=== PATIENT | female | born 1970 | race Caucasian/White ===

== ENCOUNTER → 2017-12-12 14:15 | Outpatient (CLI) | payer OTHER, SELFPAY ==
[2017-12-19 15:50] LABS: HPV Reflexed? NOT INDICATED
== END ==
PROVIDERS: Family Provider Family Medicine; PCP Family Medicine; Referring Provider Family Medicine; Visit Provider Family Medicine
DX: Z01.419 Encounter for gynecological examination (general) (routine) without abnormal findings (principal)
CPT/HCPCS: 88175; G0145

== ENCOUNTER → 2018-03-02 07:06 | Outpatient (CLI) | payer OTHER, SELFPAY ==
--- NOTE | 2018-03-02 07:13 | BI_ITS ---
MAMMOGRAPHY - BILATERAL SCREENING REASON FOR EXAM: Female, 47 years old. Routine annual screening examination. PERTINENT HISTORY: Non-contributory. TECHNIQUE: Digital bilateral breast alonso (3D mammographic acquisition) in the CC and MLO projections. 2-D mediolateral oblique (MLO) and craniocaudad (CC) views of both breasts were obtained. CAD: Full Field Digital Mammography with Computer Added Detection was performed. COMPARISON: Comparison is made with prior outside examination dated January 12, 2014. FINDINGS: Breast Composition: The breasts are heterogeneously dense, which may obscure small masses. There is an 8 mm x 6.7 mm well-defined nodule in the mid lateral portion of the left breast. Correlation with ultrasound is recommended. No other significant abnormalities are identified. BI/SCREENING MAMM (CAD), BILAT IMPRESSION: 8mm by 6.7 mm well-defined nodule in the mid lateral portion of left breast as described. Correlation with ultrasound is recommended. ASSESSMENT CATEGORY: BIRADS Category 0: Incomplete. Need additional imaging evaluation. A letter regarding these results will be sent to the patient by the facility within 30 days. Approximately 10% of breast cancers are not detected by mammography. A normal mammogram should not delay biopsy of a clinically suspicious abnormality. [id number] Electronically Signed: Parviz Steel MD at 14:35 EST Tel [phone], Service support ,
== END ==
PROVIDERS: Family Provider Family Medicine; PCP Family Medicine; Referring Provider Family Medicine; Visit Provider Family Medicine
DX: Z12.31 Encounter for screening mammogram for malignant neoplasm of breast (principal)
CPT/HCPCS: 77063; 77067

== ENCOUNTER → 2018-03-15 07:56 | Outpatient (CLI) | payer OTHER, SELFPAY ==
--- NOTE | 2018-03-15 07:59 | US_ITS ---
STUDY: ULTRASOUND BREAST - LEFT REASON FOR EXAM: Female, 47 years old. Abnormal screening mammogram. TECHNIQUE: Axial and longitudinal images of the LEFT breast were performed with a high resolution ultrasound transducer. COMPARISON: Comparison is made with prior mammogram dated March 02, 2018. FINDINGS: LEFT Breast: The lateral aspect of the left breast was examined by ultrasound. Multiple small cysts are seen. The largest measures 7 mm x by 6 mm x 5 mm. This is at the 2:00 position of the breast at 3 cm from the nipple and corresponds to the mammographic findings. There are 2 Benign-appearing lymph nodes are seen in the axillary region of the breast. The larger measures 1.1 cm x 0.9 cm x 0.4 cm. US/Breast Limited Unilateral IMPRESSION: The mammographic finding corresponds to a 7 mm x 6 mm x 5 mm cyst. Routine mammographic follow-up is recommended. ASSESSMENT CATEGORY: BIRADS Category 2: Benign. A letter regarding these results will be sent to the patient by the facility within 30 days. Electronically Signed: Parviz Steel MD at 9:20 EST Tel [phone], Service support ,
== END ==
PROVIDERS: Family Provider Family Medicine; PCP Family Medicine; Referring Provider Family Medicine; Visit Provider Family Medicine
DX: R92.8 Other abnormal and inconclusive findings on diagnostic imaging of breast (principal)
CPT/HCPCS: 76642

== ENCOUNTER → 2018-12-18 | Outpatient (CLI) | payer OTHER, SELFPAY ==
[2018-12-18 09:40] VITALS: BMI 26.4
[2018-12-18 13:10] LABS: AST(SGOT) 25 U/L (15-37); Alanine Aminotransfer ALT/SGPT 36 U/L (13-56); Albumin, Serum 3.8 g/dL (3.2-5.0); Alkaline Phosphatase 60 U/L (45-117); Anion Gap 9 (5-15); BUN 16 mg/dL (7-18); Calcium,Total 9.1 mg/dL (8.5-10.1); Chloride 105 mmol/L (98-107); Creatinine, Serum 0.84 mg/dL (0.55-1.02); EST Glomerular Filtration Rate 76 mL/min (>60); Est Glom Filt Rate - Afr Amer 92 mL/min (>60); Follicle Stimulating Hormone 30.6 mIU/mL; Globulin 3.9 g/dL (2.2-4.2); Glucose 112 mg/dL (74-106); Potassium 4.1 mmol/L (3.5-5.1); Protein, Total 7.7 g/dL (6.4-8.2); Sodium Level 138 mmol/L (136-145)
== END | disposition home or self-care (01) ==
LOC: BIMLAB 10:08
PROVIDERS: Family Provider Family Medicine; PCP Family Medicine; Visit Provider Family Medicine
DX: Z78.0 Asymptomatic menopausal state (principal); Z87.19 Personal history of other diseases of the digestive system
CPT/HCPCS: 36415; 80053; 83001

== ENCOUNTER 2019-02-21 07:04 | Day surgery (SDC) | payer OTHER, SELFPAY ==
[2018-12-18 09:40] VITALS: BMI 26.4
[2019-02-21 07:22] VITALS: BP 128/81; PULSE 84; RESP 15; TEMP 37.2; O2SAT 99; BMI 27.6
[2019-02-21 07:25] LABS: Internal QC Validated? YES +Cl - CLEAR BKGD; Pregnancy, Urine Negative Negative
[2019-02-21] MEDS: Lactated Ringers 1,000 ML 100 ML IV (07:31)
--- NOTE | 2019-02-21 07:39 | H&P.OPEN ---
History of Present Illness Date of Admission: 02/21/19 The patient is a 48 year old F who presents for screening colonoscopy. This is her first colonoscopy. She has no abdominal pain or blood in her stool. She has no family history of colon cancer. She is not on any anticoagulation. Past Medical/Surgical History - Planned Operation Planned Operative Procedure/s: cscope Date of Operative Procedure: 02/21/19 Permit Signed: No S.O.S: No Is This Patient Having a Total Joint: No - Previous Hospitalizations/Surgeries HX Hospitalizations: No HX of Surgeries: gallbladder Any Problems With Anesthesia: No You/Your Family Experience Fever (Hyperthermia) With Anes: No Cholinesterase deficiency: No - Cardiovascular Hx Chest Pain within Last 2 months: No Hx of Irregular Heartbeat and/or Afib: No Hx Heart Attack: No Hx Congestive Heart Failure: No Hx Rheumatic Fever: No Hx Hypertension: No Hx Internal Defibrillator: No Hx Pacemaker: No Hx Cardiac Catheterization: No Hx Cardiac Surgery/Stents/Etc.: No Hx Stress Test: No HX Edema: No Hx Pain in Legs when Walking/Leg Cramps: No - Respiratory Chronic Cough: No HX of Shortness of Breath: No Hoarseness: No Hx Chronic Obstructive Pulmonary Disease (COPD): No Hx Asthma: No Hx Emphysema: No Hx Sleep Apnea: No Hx Oxygen Use at Home: No Hx Respiratory Tract Infection/Cold (presently): No Do You Snore Loudly (louder than talking or can be heard): No Do You Often Feel Tired/ Fatigued/ Sleepy Dring Daytime?: No Has Anyone Observed You Stop Breathing During Sleep?: No Result (for STOP score): Negative Hx Smoking: No Smoking Status: Never smoker - Gastrointestinal Hx Gastroesophageal Reflux: No - occ heartburn Hx Gastrointestinal Disorders: No Hx Gastrointestinal Bleed: No Hx Ulcer: No Hx Hiatal Hernia: No Difficulty Chewing/Swallowing: No Recent Onset of Swallowing Problems: No Special diet followed at home: No Hx Unplanned Weight Loss of 20#: No HX Unplanned Weight Gain of 20#: No - Neurological Hx Seizures: No HX Syncope/Blackout Spells/Unconsciousness: No Hx CVA/Stroke: No Hx Transient Ischemic Attacks (TIA): No Hx Multiple Sclerosis: No Hx Parkinson's Disease: No Hx Head/Neck Injury: No Hx Headaches: Yes - occ Hx Back Injury/Pain: No Recent Onset of Speech Difficulty: No Restless Legs: No Does patient have nerve stimulator: No Patient instructed to have device shut off: No Rep notified?: No - Blood Disorder Hx Leukemia: No Bleeding Tendencies: No Hx Deep Vein Thrombosis: No Hx High Cholesterol: No Blood Transmitted Disease: No Hx Hepatitis: No Hx Cirrhosis: No Hx Anemia: No Hx Blood Disorders: No - Reproduction : No Is Patient Lactating: No Hx Hysterectomy: No Hx Tubal Ligation: No Are You Post Menopause: No - Genitourinary Hx Renal Disease: No - Musculoskeletal Hx Arthritis: No Hx Rheumatoid Arthritis: No Hx Gout: No Recent Onset of an Orthopedic Problem: No - Endocrine Hx Diabetes: No Thyroid Disease: No Hx Steroid Therapy: No - Psycho/Social Hx Substance Use: No Hx Alcohol Use: No Hx Anxiety: No Hx Depression: No Mental Illness: No Hx Dementia: No - Miscellaneous Hx Cancer: No Recent Exposure to Contagious Disease: No Active MRSA: No Hx of C-Diff: No Any Loose Teeth: No Allergies No Known Allergies Allergy (Unverified 02/21/19 07:22) - Discharge Is Pt Admitted From a Long Term, or a Jail: No Who Could Help: family After D/C, Where Do you Plan to Go: Return Home - Physical Exam Vitals/I&O's: Vital Signs Temp Pulse Resp BP Pulse Ox 98.9 F 84 15 128/81 H 99 02/21/19 07:22 02/21/19 07:22 02/21/19 07:22 02/21/19 07:22 02/21/19 07:22 Oxygen Delivery Method Room Air Weight: 166 lb 7.184 oz Body Mass Index (BMI) 27.6 General: Alert, Oriented x3 Lungs: Normal air movement Cardiovascular: Regular rate, Regular Rhythm Abdomen: Soft, Non Tender, Non-Distended Laboratory Results 02/21/19 07:15: Urine Test Negative Current Medications Lactated Ringer's () 1,000 mls @ 100 mls/hr IV .Q10H FELICIA Last Admin: 02/21/19 07:31 Dose: 100 mls/hr Documented by: Assessment/Plan All Active Problems (Last Reviewed 12/18/18 @ 10:09 by Lavell Nuñez DO) Encounter for preventive care (Acute) History of stomach ulcers (Acute) History of pneumonia (Acute) 48-year-old female screening colonoscopy I explained endoscopy in detail to the patient. I explained the risks including but not limited to stroke or heart attack with anesthesia, perforation of the GI tract, bleeding, infection. I explained that any of these could necessitate further emergency surgery. The patient understands and all questions were answered sufficiently. The patient wishes to proceed with procedure. Gino Dorsey MD Pager: [facility] [address] [place] [address] [address] [place] [address] Office: Surgery Risks - Colonoscopy Risks Include but are not Limited To: Risks include but are not limited to: Bleeding, perforation requiring further surgery, inability to complete colonoscopy requiring barium enema.
[2019-02-21 08:11] VITALS: BP 104/73; BP 128/81; PULSE 72; RESP 16; TEMP 36.6; O2SAT 100
--- NOTE | 2019-02-21 08:13 | OP.COLON_ITS ---
Patient Name: Michelle Parkinson Procedure Date: 02/21/2019 7:19 AM Date of : 1970 Age: 48 Procedure: Colonoscopy Indications: Screening for colorectal malignant neoplasm Providers: Gino Dorsey MD Referring MD: Lavell Nuñez Medicines: Monitored Anesthesia Care Patient Profile: This is a 48 year old female. Refer to note in patient chart for documentation of history and physical. Last Colonoscopy: none. The patient's first colonoscopy is today. Complications: No immediate complications. Procedure: Pre-Anesthesia Assessment: - Prior to the procedure, a History and Physical was performed, and patient medications and allergies were reviewed. The patient's tolerance of previous anesthesia was also reviewed. The risks and benefits of the procedure and the sedation options and risks were discussed with the patient. All questions were answered, and informed consent was obtained. Prior Anticoagulants: The patient has taken no previous anticoagulant or antiplatelet agents. After reviewing the risks and benefits, the patient was deemed in satisfactory condition to undergo the procedure. After I obtained informed consent, the scope was passed under direct vision. Throughout the procedure, the patient's blood pressure, pulse, and oxygen saturations were monitored continuously. The colonoscope was introduced through the anus and advanced to the cecum, identified by appendiceal orifice and ileocecal valve. The colonoscopy was performed without difficulty. The patient tolerated the procedure well. The quality of the bowel preparation was good. Scope In: 7:54:29 AM Scope Withdrawal Time 0 hours 6 minutes 37 seconds Scope Out: 8:07:52 AM Total Procedure Duration Time 0 hours 13 minutes 23 seconds Findings: The entire examined colon appeared normal on direct and retroflexion views. Impression: - The entire examined colon is normal on direct and retroflexion views. - No specimens collected. Recommendation: - Discharge patient to home. - Resume previous diet. - Continue present medications. - Repeat colonoscopy in 10 years for screening purposes. Procedure Code(s): --- Professional --- 98719, Colonoscopy, flexible; diagnostic, including collection of specimen(s) by brushing or washing, when performed (separate procedure) Diagnosis Code(s): --- Professional --- Z12.11, Encounter for screening for malignant neoplasm of colon CPT copyright 2017 [employer]. All rights reserved. The codes documented in this report are preliminary and upon linux systems administrator review may be revised to meet current compliance requirements. Gino Dorsey MD 02/21/2019 8:13:07 AM This report has been signed electronically. Number of Addenda: 0 Note Initiated On: 02/21/2019 7:19 AM
[2019-02-21 08:15] VITALS: BP 108/75; BP 128/81; PULSE 68; RESP 16; O2SAT 100
[2019-02-21 08:20] VITALS: BP 109/83; BP 128/81; PULSE 68; RESP 16; O2SAT 96
[2019-02-21 08:25] VITALS: BP 110/78; BP 128/81; PULSE 62; RESP 16; TEMP 36.8; O2SAT 100
[2019-02-21 08:41] VITALS: BP 128/81
== END 2019-02-21 08:52 | disposition home or self-care (01) ==
LOC: EN 07:04 → AC 07:05
PROVIDERS: Anesthesiology; Family Provider Family Medicine; PCP Family Medicine; Referring Provider Family Medicine; Visit Provider Surgery
PROC: 0DJD8ZZ Inspection of Lower Intestinal Tract, Via Natural or Artificial Opening Endoscopic (ICD-10-PCS; CPT 45378; principal; 2019-02-21 07:55)
DX: Z12.11 Encounter for screening for malignant neoplasm of colon (principal)
CPT/HCPCS: 45378; 81025; J7120

== ENCOUNTER → 2022-01-04 | Outpatient (CLI) | payer OTHER, SELFPAY ==
[2022-01-04 16:37] LABS: Absolute Neutrophil Count 3.1 X10^3/uL (2.0-7.7); Basophil# 0.01 X10^3/uL; Basophil% 0.2 % (0-1); Eosinophils% 1.8 % (0-5); Hematocrit 43.4 % (37-47); Lymphocyte % 31.6 % (19-41); Mean Corp Hgb Conc 34.6 g/dL (32-36); Mean Corpuscular Hgb 30.1 pg (27.0-32.0); Mean Platelet Vol. 10.1 fl (6.2-12.0); Monocyte# 0.69 X10^3/uL; Monocyte% 12.1 % (0-10); NRBC Flagged by Analyzer 0 % (0-5); Neutrophil # 3.08 X10^3/uL (2.7-7.7); Neutrophil % 54.1 % (47-70); Platelet Count 230 K/mm3 (150-450); RBC Distribution Width CV 13.7 % (11.6-14.6); RBC Distribution Width SD 43.4 fl (35.1-43.9); Red Blood Count 4.99 M/mm3 (4.2-5.4); White Blood Count 5.7 K/mm3 (4.4-11.0)
[2022-01-04 17:01] LABS: Anion Gap 6 (5-15); BUN 16 mg/dL (7-18); BUN/Creat Ratio 19.4 RATIO (10-20); Calcium,Total 9.3 mg/dL (8.5-10.1); Chloride 103 mmol/L (98-107); Creatinine, Serum 0.82 mg/dL (0.55-1.02); EST Glomerular Filtration Rate 77 mL/min (>60); Est Glom Filt Rate - Afr Amer 93 mL/min (>60); Glucose 90 mg/dL (74-106); Potassium 3.5 mmol/L (3.5-5.1); Sodium Level 138 mmol/L (136-145)
[2022-01-13 14:51] LABS: HPV Reflexed? NOT INDICATED
== END | disposition home or self-care (01) ==
LOC: BIMLAB 14:46
PROVIDERS: PCP Family Medicine; Referring Provider Family Medicine; Visit Provider Family Medicine
DX: N92.4 Excessive bleeding in the premenopausal period (principal)
CPT/HCPCS: 36415; 80048; 85025; 88175; G0145

== ENCOUNTER → 2022-02-01 | Outpatient (CLI) | payer OTHER, SELFPAY ==
--- NOTE | 2022-02-01 13:04 | BI_ITS ---
MAMMOGRAPHY - BILATERAL SCREENING REASON FOR EXAM: Female, 51 years old. Routine annual screening examination. PERTINENT HISTORY: Non-contributory. TECHNIQUE: Digital bilateral breast misty (3D mammographic acquisition) in the CC and MLO projections. 2-D mediolateral oblique (MLO) and craniocaudad (CC) views of both breasts were obtained. CAD: Full Field Digital Mammography with Computer Added Detection was performed. COMPARISON: Comparison is made with prior study 03/02/2018. FINDINGS: Breast Composition: The breasts are heterogeneously dense, which may obscure small masses. There are 3 adjacent small nodular densities seen in the upper outer quadrant of the left breast. The largest measures 1.1 cm. Correlation with ultrasound is recommended. No other significant abnormalities are identified. BI/SCRN MAMM (CAD)W/MISTY BILAT IMPRESSION: Cluster of 3 nodular densities in the upper lateral aspect of the left breast as described. Targeted ultrasound is recommended for further evaluation. ASSESSMENT CATEGORY: BIRADS Category 0: Incomplete. Need additional imaging evaluation. A letter regarding these results will be sent to the patient by the facility within 30 days. Approximately 10% of breast cancers are not detected by mammography. A normal mammogram should not delay biopsy of a clinically suspicious abnormality. [id number] Electronically Signed: Parviz Steel MD at 13:54 EST ,
== END | disposition home or self-care (01) ==
LOC: OPBI 13:03
PROVIDERS: PCP Family Medicine; Referring Provider Family Medicine; Visit Provider Family Medicine
DX: Z12.31 Encounter for screening mammogram for malignant neoplasm of breast (principal)
CPT/HCPCS: 77063; 77067

== ENCOUNTER → 2022-02-03 | Outpatient (CLI) | payer OTHER, SELFPAY ==
--- NOTE | 2022-02-03 14:00 | US_ITS ---
STUDY: ULTRASOUND BREAST - LEFT REASON FOR EXAM: Female, 51 years old. Abnormal screening mammogram. TECHNIQUE: Axial and longitudinal images of the LEFT breast were performed with a high resolution ultrasound transducer. # OF IMAGES: 41 COMPARISON: Comparison is made with prior mammogram dated 02/01/2022 and prior sonogram of the left breast dated 03/15/2018. FINDINGS: LEFT Breast: The upper outer quadrant of the left breast was examined with ultrasound. Small cysts are seen in the upper outer quadrant. The largest cyst measures 1 cm x 1.2 cm x 0.8 cm. This is at the 1 o''clock position of the breast at 3 cm from the nipple. It is also evidence of a 9 mm x 7 mm x 4 mm benign appearing lymph node at the 1 o''clock position of the breast at 8 cm from nipple. US/Breast Limited Unilateral IMPRESSION: The mammographic abnormality corresponds to a 1 cm x 1.2 cm x 0.8 cm cyst at the 1 o''clock position of the breast at 3 cm from nipple. ASSESSMENT CATEGORY: BIRADS Category 2: Benign. A letter regarding these results will be sent to the patient by the facility within 30 days. Electronically Signed: Parviz Steel MD at 11:03 EST ,
== END | disposition home or self-care (01) ==
PROVIDERS: PCP Family Medicine; Referring Provider Family Medicine; Visit Provider Family Medicine
DX: R92.8 Other abnormal and inconclusive findings on diagnostic imaging of breast (principal); N63.0 Unspecified lump in unspecified breast
CPT/HCPCS: 76642

== ENCOUNTER → 2024-01-09 | Outpatient (CLI) | payer OTHER, SELFPAY ==
[2024-01-09 12:45] LABS: Anion Gap 5 (5-15); BUN 16 mg/dL (7-18); BUN/Creat Ratio 20.8 RATIO (10-20); Calcium,Total 9.3 mg/dL (8.5-10.1); Chloride 106 mmol/L (98-107); Cholesterol 185 mg/dL (200); Creatinine, Serum 0.77 mg/dL (0.55-1.02); EST Glomerular Filtration Rate 83 mL/min (>60); Est Glom Filt Rate - Afr Amer 100 mL/min (>60); Glucose 107 mg/dL (74-106); High Density Lipoprotein 63 mg/dL; Potassium 4.7 mmol/L (3.5-5.1); Sodium Level 139 mmol/L (136-145); Triglycerides 110 mg/dL; Very Low Density Lipoprotein 22 mg/dL (5-40)
== END | disposition home or self-care (01) ==
LOC: BIMLAB 09:19
PROVIDERS: PCP Family Medicine; Referring Provider Family Medicine; Visit Provider Family Medicine
DX: Z00.00 Encounter for general adult medical examination without abnormal findings (principal); R63.5 Abnormal weight gain; N92.4 Excessive bleeding in the premenopausal period
CPT/HCPCS: 36415; 80048; 80061; 84443

== ENCOUNTER → 2024-01-30 | Outpatient (CLI) | payer OTHER, SELFPAY ==
--- NOTE | 2024-01-29 17:15 | BI_ITS ---
MAMMOGRAPHY - BILATERAL SCREENING 3-D TOMOSYNTHESIS REASON FOR EXAM: Female, 53 years old. Routine screening PERTINENT HISTORY: No significant family history. TECHNIQUE: 2-D mammograms and 3-D Tomosynthesis of the breast (s) were performed. CAD was performed. COMPARISON: 02/01/2022 FINDINGS: The breast composition is heterogeneously dense that can obscure small breast masses. Stable benign punctate calcifications are seen. The pattern of more dense fibroglandular tissue in the left breast in the right is again noted but there is also been a subtle changes to the parenchymal pattern since the previous study has become slightly more dense and larger and a second area of asymmetry is now also more conspicuous than on the previous study of 2021. Although the left breast has been previously evaluated with ultrasound, further evaluation of the left breast with spot compression views and ultrasound is again recommended since her has been a parenchymal change. The right breast is stable and unchanged. BI/SCRN MAMM (CAD)W/MISTY BILAT IMPRESSION: Slight changes with probable pattern the upper-outer quadrant of the left breast. Further evaluation with spot compression views and ultrasound recommended ASSESSMENT CATEGORY: BIRADS Category 0: Incomplete. Need additional imaging evaluation as above. A letter regarding these results will be sent to the patient by the facility within 30 days. FOLLOW UP RECOMMENDATION: Additional imaging recommended as above. (E) Approximately 10% of breast cancers are not detected by mammography. A normal mammogram should not delay biopsy of a clinically suspicious abnormality. Electronically Signed: Lars Pettit MD at 8:12 EST ,
== END | disposition home or self-care (01) ==
LOC: OPBI 07:02
PROVIDERS: PCP Family Medicine; Referring Provider Family Medicine; Visit Provider Family Medicine
DX: Z12.31 Encounter for screening mammogram for malignant neoplasm of breast (principal)
CPT/HCPCS: 77063; 77067

== ENCOUNTER → 2024-02-12 | Outpatient (CLI) | payer OTHER, SELFPAY ==
--- NOTE | 2024-02-12 09:03 | BI_ITS ---
MAMMOGRAPHY - UNILATERAL DIAGNOSTIC: LEFT BREAST REASON FOR EXAM: Female, 53 years old. Abnormal screening mammogram. PERTINENT HISTORY: Non-contributory. TECHNIQUE: Compression spot views in mediolateral oblique and craniocaudad projections were obtained. CAD: Full Field Digital Mammography with Computer Added Detection was performed. COMPARISON: Comparison is made with prior study dated January 29, 2024. FINDINGS: Breast Composition: The breasts are heterogeneously dense, which may obscure small masses. Persistent nodular density in the upper lateral aspect of the left breast. Correlation with ultrasound recommended. No other significant abnormalities are identified. BI/DIAG MAMM W/CAD, UNILAT IMPRESSION: Persistent nodular density in the upper lateral aspect of the left breast as described. Targeted sonographic correlation recommended. ASSESSMENT CATEGORY: BIRADS Category 0: Incomplete. Need additional imaging evaluation. A letter regarding these results will be sent to the patient by the facility within 30 days. Approximately 10% of breast cancers are not detected by mammography. A normal mammogram should not delay biopsy of a clinically suspicious abnormality. Electronically Signed: Parviz Steel MD at 9:46 EST ,
--- NOTE | 2024-02-12 09:03 | US_ITS ---
STUDY: ULTRASOUND BREAST - LEFT REASON FOR EXAM: Female, 53 years old. Abnormal screening mammogram. TECHNIQUE: Axial and longitudinal images of the LEFT breast were performed with a high resolution ultrasound transducer. # OF IMAGES: 24 COMPARISON: Comparison is made with prior mammogram dated January 29, 2024 and February 12, 2024. FINDINGS: LEFT Breast: The upper aspect of the right breast was examined with ultrasound. Several cysts are seen at the 1:00 position of the breast at 3 cm from the nipple. The largest measures 1.7 cm x 1.9 cm x 0.8 cm. The other cyst measures 1.3 cm x 1.1 cm x 0.8 cm. Low-level echoes are seen within it. A mural nodule is seen along its base with increased vascularity. Aspiration is recommended. There is also evidence of an 8mm by 8 mm x 7 mm well-defined hypoechoic solid nodule at the 2:00 position of the bursa for sinus and nipple. This most likely represents a fibroadenoma. US/Breast Limited Unilateral IMPRESSION: The mammographic abnormality corresponds to a cyst. There is also evidence of a 1.3 cm x 1.1 cm x 0.8 cm cyst at the 1:00 position breast at 3 cm from the nipple with a mural nodule with increased vascularity. Aspiration is recommended. ASSESSMENT CATEGORY: BIRADS Category 4: Suspicious - Biopsy Should Be Considered. A letter regarding these results will be sent to the patient by the facility within 30 days. Electronically Signed: Parviz Steel MD at 9:53 EST ,
== END | disposition home or self-care (01) ==
PROVIDERS: PCP Family Medicine; Referring Provider Family Medicine; Visit Provider Family Medicine
DX: R92.8 Other abnormal and inconclusive findings on diagnostic imaging of breast (principal)
CPT/HCPCS: 76642; 77065

== ENCOUNTER 2024-02-15 15:32 | Outpatient (CLI) | payer OTHER, SELFPAY ==
--- NOTE | 2024-02-15 | FLU_PTH ---
PATIENT: JOSE ANGEL HERMAN LOC: [facility] U#:[id number] AGE/SX: 53/F ROOM: RE02/15/[address]: Dr. Juan Alfaro MD : 1970 BED: DIS: 02/15/2024 SPEC #: [id number] RECD: 02/15/24 14:54 STATUS: KATIE REQ #: [id number] CELSO: 02/15/24 00:[address]: Juan Alfaro DEPT: CYTOLOGY RECD BY: Rowan Wright ENTERED: 02/18/24 08:59 SP TYPE: Fluid OTHR DR: Dr. Lavell Nuñez, DO Tissues: Breast, NOS Procedures: Special Stain Group II Surgery Specimen Level IV Cytospin Fluid HEADER OPERATION: Left breast cyst fluid PRE-OP DIAGNOSIS: Left breast cyst TISSUE SUBMITTED: Left breast cyst fluid for cytology DIAGNOSIS CYTOLOGY Fine needle aspiration, left breast cyst fluid (cytospins and cellblock): Negative for malignant cells. See comment. AM.mr 02/19/2024 COMMENT The findings are consistent with benign cyst contents. Clinical correlation is suggested. CYTOLOGY STUDY Slides are reviewed. CYTOLOGY GROSS Received is 3 ml of cloudy-disla fluid labeled with the patient's name and and designated per the requisition as Left breast cyst. Submitted for cytology preparation including cell block. Mr 02/18/2024 TC:5 CPT: 24088,95807
[2024-02-15 15:57] LABS: Cytology, Body Fluid / CSF SEE PATHOLOGY REPORT
== END 2024-02-15 23:59 | disposition home or self-care (01) ==
LOC: LABSPEC 15:34
PROVIDERS: PCP Family Medicine; Referring Provider Surgery; Visit Provider Surgery
DX: N60.02 Solitary cyst of left breast (principal)
CPT/HCPCS: 88108; 88305; 88313

== ENCOUNTER → 2024-06-04 | Outpatient (CLI) | payer OTHER, SELFPAY ==
--- NOTE | 2024-06-04 14:46 | RAD_ITS ---
PROCEDURE: CHEST PA AND LATERAL 06/04/2024 REASON FOR EXAM: CHRONIC COUGH, SOB TECHNIQUE: Frontal and lateral views of the chest. COMPARISON: None. FINDINGS: Hardware: None. Heart: Mediastinum: Unremarkable. Lungs: Lungs are clear. No pleural effusions. Bones: Unremarkable RAD/Chest PA and Lateral IMPRESSION: No acute process is detected. Reading [facility]
[2024-06-04 16:01] LABS: Absolute Lymphocyte Count 2.43 X10^3/uL (0.83-4.51); Absolute Neutrophil Count 2.6 X10^3/uL (2.0-7.7); Basophil# 0.03 X10^3/uL; Basophil% 0.5 % (0-1); Eosinophil# 0.13 X10^3/uL; Eosinophils% 2.2 % (0-5); Lymphocyte # 2.43 X10^3/ul (0.83-4.51); Lymphocyte % 40.4 % (19-41); Mean Corpuscular Hgb 29.6 pg (27.0-32.0); Mean Corpuscular Volume 86.9 fL (81-99); Mean Platelet Vol. 9.9 fl (6.2-12.0); Monocyte# 0.81 X10^3/uL; Monocyte% 13.5 % (0-10); NRBC Flagged by Analyzer 0 % (0-5); Neutrophil # 2.57 X10^3/uL (2.7-7.7); Neutrophil % 42.6 % (47-70); Platelet Count 254 K/mm3 (150-450); RBC Distribution Width CV 13.2 % (11.6-14.6); RBC Distribution Width SD 41.4 fl (35.1-43.9); Red Blood Count 5.41 M/mm3 (4.2-5.4)
[2024-06-04 17:59] LABS: ALB/GLOB Ratio 1.3 RATIO (0.9-2.4); AST(SGOT) 43 U/L (<=31); Alanine Aminotransfer ALT/SGPT 44 U/L (<=34); Albumin, Serum 4.3 g/dL (3.5-5.0); Alkaline Phosphatase 90 U/L (35-104); Anion Gap 13 (5-15); BUN 20 mg/dL (4-19); BUN/Creat Ratio 26.5 RATIO (10-20); Calcium,Total 9.5 mg/dL (7.6-11.0); Carbon Dioxide 22.1 mmol/L (21.0-32.0); Chloride 105 mmol/L (98-108); Creatinine, Serum 0.74 mg/dL (0.70-1.20); EST Glomerular Filtration Rate 95 (>60); Globulin 3.2 g/dL (2.2-4.2); Glucose 137 mg/dL (70-99); Potassium 3.9 mmol/L (3.3-5.1); Protein, Total 7.5 g/dL (5.9-8.4); Sodium Level 140 mmol/L (133-145); Total Bilirubin 0.26 mg/dL (0.00-1.30)
== END | disposition home or self-care (01) ==
PROVIDERS: PCP Family Medicine; Referring Provider Family Medicine; Visit Provider Family Medicine
DX: I10 Essential (primary) hypertension (principal)
CPT/HCPCS: 36415; 71046; 80053; 85025

== ENCOUNTER → 2024-06-19 | Outpatient (CLI) | payer OTHER, SELFPAY ==
--- NOTE | 2024-06-23 10:32 | STRESSREP_ITS ---
Stress Test Report Date: 06/19/2024 Procedure: Exercise tolerance test Indications: Dyspnea Consent: Per the patient Procedure: The patient exercised on a Sacha protocol for 8 minutes achieving a peak heart rate of 151 bpm (91% predicted maximal heart rate) with a peak blood pressure 164/74 mmHg and a peak MET capacity of approximately 10.1 MET's. The baseline ECG demonstrated normal sinus rhythm. The peak exercise ECG showed sinus tachycardia with no ischemic changes. No significant cardiac dysrhythmias noted pretest, during exercise or in re covery. The functional capacity was considered good. The patient had no complaints of chest discomfort during exercise or recovery. The examination was discontinued secondary to target heart rate being achieved and dyspnea. Impression: 1. Technically adequate (percent predicted maximal heart rate greater than 85%) exercise tolerance test 2. Peak exercise ECG with no ischemic changes. No chest pain reported 3. No significant cardiac dysrhythmias noted during exercise or in recovery This note was generated with [employer]ia[employer] software. It may contain incorrect words, spelling, and punctuation that were not noted in checking the note before signing.
== END | disposition home or self-care (01) ==
LOC: CVS 10:00
PROVIDERS: PCP Family Medicine; Referring Provider Family Medicine; Visit Provider Family Medicine
DX: R06.09 Other forms of dyspnea (principal)
CPT/HCPCS: 93017